=== PATIENT | male | born 2000 | race Two or more races ===

== ENCOUNTER 2020-05-14 08:41 | Outpatient (REF) | payer OTHER, SELFPAY ==
[2020-05-14 08:52] LABS: COVID-19 Test Positive (Negative); IDNOW Serial# 55D5AD1C
== END 2020-05-14 08:42 | disposition home or self-care (01) ==
LOC: HO.EMPCOV 08:41
PROVIDERS: Visit Provider Internal Medicine
DX: Z20.822 Contact with and (suspected) exposure to COVID-19 (principal)
CPT/HCPCS: 36415; 87635; C9803

== ENCOUNTER → 2022-01-05 11:58 | Outpatient (RCR) | payer MEDICAID, SELFPAY ==
[2020-01-30 06:57] LABS: COVID-19 Test Negative (Negative)
[2020-02-09 06:38] LABS: COVID-19 Test Negative (Negative)
[2020-02-16 06:52] LABS: COVID-19 Test Negative (Negative)
[2020-03-04 10:01] LABS: SARS-COV-2 PCR UMBRL Not Detected
[2020-03-18 10:28] LABS: SARS-COV-2 PCR UMBRL Not Detected
[2020-03-31 10:01] LABS: SARS-COV-2 PCR UMBRL NOT DETECTED
[2020-04-09 11:09] LABS: SARS-COV-2 PCR UMBRL NEGATIVE
== END | disposition home or self-care (01) ==
LOC: HO.EMPCOV 01-30 06:32
PROVIDERS: Visit Provider Internal Medicine
DX: Z20.828 Contact with and (suspected) exposure to other viral communicable diseases (principal)
CPT/HCPCS: 36415; 87635; C9803; U0003